=== PATIENT | male | born 1970 ===

== ENCOUNTER 2016-11-30 12:43 | Emergency (ER) | payer MEDICAID, OTHER ==
[2016-11-30 12:58] VITALS: TEMP 97.7; O2SAT 100
--- NOTE | 2016-11-30 14:01 | C.PDOC ---
History Of Present Illness 46 year old patient presents to the ED complaining of pain to the left great toe secondary to a toe nail infection over a month ago. Patient notes he tried OTC medication without any relief. The pain has been persistent. He rates it as 6 out of 10 and it has a throbbing sensation. Patient denies fever, chills, numbness, weakness, or any other complaints at this time. Time Seen by Provider: 11/30/16 13:04 Chief Complaint (Nursing): Lower Extremity Problem/Injury History Per: Patient History/Exam Limitations: no limitations Onset/Duration Of Symptoms: Other (1 month) Current Symptoms Are (Timing): Still Present Severity: Moderate Pain Scale Rating Of: 6 Recent travel outside of the [place]: No Past Medical History Reviewed: Historical Data, Nursing Documentation, Vital Signs Vital Signs: Last Vital Signs Temp 97.7 F 11/30/16 12:53 Pulse 61 11/30/16 14:20 Resp 18 11/30/16 14:20 BP 124/72 11/30/16 14:20 Pulse Ox 100 11/30/16 14:29 - Medical History PMH: Back Problems, Gastritis Family History: States: Unknown Family Hx - Social History Hx Alcohol Use: No Hx Substance Use: No - Immunization History Hx Tetanus Toxoid Vaccination: No Hx Influenza Vaccination: No Hx Pneumococcal Vaccination: No Review Of Systems Except As Marked, All Systems Reviewed And Found Negative. Constitutional: Negative for: Fever, Chills Musculoskeletal: Positive for: Foot Pain (left great toe) Neurological: Negative for: Weakness, Numbness Physical Exam - Physical Exam Appears: Non-toxic, No Acute Distress Skin: Warm, Dry Cardiovascular: Rhythm Regular Extremity: Normal ROM, No Tenderness, No Pedal Edema, No Calf Tenderness, Capillary Refill (<2 seconds), No Deformity, No Swelling, Other (left foot: thickness to the great toe nail; grayish discoloration; normal pulse; full ROM) Neurological/Psych: Oriented x3, Normal Motor, Normal Sensation Gait: Steady ED Course And Treatment - Laboratory Results Result Diagrams: 11/30/16 13:59 O2 Sat by Pulse Oximetry: 100 (room air) Pulse Ox Interpretation: Normal Progress Note: Plan: Complete metabolic panel Disposition Counseled Patient/Family Regarding: Studies Performed, Diagnosis, Need For Followup, Rx Given - Disposition Referrals: [facility] [Outside] Disposition: HOME/ ROUTINE Disposition Time: 13:58 Condition: STABLE Additional Instructions: Please go to the clinic an make a Podiatry appointment. Prescriptions: Terbinafine HCl [Lamisil] 250 mg PO DAILY #14 tablet Instructions: Terbinafine (By mouth) Forms: Gen Discharge Inst Estonian - POA Present On Arrival: None - Clinical Impression Clinical Impression: Nail fungal infection - Scribe Statement The provider has reviewed the documentation as recorded by the Jannetibyeison Ambrose Provider Attestation: All medical record entries made by the Jannetibyeison were at my direction and personally dictated by me. I have reviewed the chart and agree that the record accurately reflects my personal performance of the history, physical exam, medical decision making, and the department course for this patient. I have also personally directed, reviewed, and agree with the discharge instructions and disposition.
[2016-11-30 14:12] LABS: CHLORIDE 101 mmol/L (98-107); SODIUM 137 mmol/L (132-148)
[2016-11-30 14:13] LABS: POTASSIUM 4.2 mmol/L (3.6-5.2)
[2016-11-30 14:15] LABS: ALB/GLOB RATIO 1.1 (1.0-2.1); ALKALINE PHOSPHATASE 73 U/L (38-126); ALT/SGPT 36 U/L (21-72); AST/SGOT 33 U/L (17-59); BILIRUBIN,TOTAL 1.9 mg/dL (0.2-1.3); BLOOD UREA NITROGEN 11 mg/dL (9-20); CALCIUM 8.6 mg/dl (8.6-10.4); CARBON DIOXIDE 27 mmol/L (22-30); GFR AFRICAN-AMERICAN > 60; GLUCOSE,RANDOM 82 mg/dL (75-110); TOTAL PROTEIN 7.6 g/dL (6.3-8.3)
[2016-11-30 14:40] VITALS: BP 124/72; PULSE 61; RESP 18
== END 2016-11-30 14:41 | disposition home or self-care (01) ==
LOC: C.ER 12:43
DX: B35.1 Tinea unguium (principal)